=== PATIENT | male | born 2000 | race Native Hawaiian/Other Pacific Islander ===

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

== ENCOUNTER 2022-03-02 16:40 | Emergency (ER) | payer OTHER ==
[~2022-03-02] VITALS: Ht 170.2 cm; Wt 104.3 kg
[2022-03-02 18:15] VITALS: BP 135/85; TEMP 98.2
== END 2022-03-02 18:15 | disposition home or self-care (01) ==
LOC: ED 16:40
PROC: 0HDMXZZ Extraction of Right Foot Skin, External Approach (ICD-10-PCS; principal; 2022-03-02)
DX: S91.111A Laceration without foreign body of right great toe without damage to nail, initial encounter (principal); W16.612A Jumping or diving into natural body of water striking water surface causing other injury, initial encounter; Y92.828 Other wilderness area as the place of occurrence of the external cause
CPT/HCPCS: 99283